=== PATIENT | female | born 1935 ===

== ENCOUNTER 2021-01-11 16:33 | Emergency (ER) | payer MEDICARE, OTHER ==
[~2021-01-11] VITALS: Ht 167.6 cm; Wt 74.8 kg
[~2021-01-11 16:33] MED LIST: BENICAR HCT 401 EAC1 PO; CELECOXIB200 M1 PO; CITALOPRAM20 MG PO; DONEPEZIL HYDROC5 MG PO; LOSARTAN-HCTZ1 EAC1 PO; METOPROLOL SUCC50 M2 PO; SERTRALINE HYDR50 MG PO; THERAGRAN-M PR1 EACH PO; ZOLOFT100 MG PO
[2021-01-11 17:41] LABS: BASO % 0.3 % (0.0-1.0); EOS # 0.9 10*3/uL (0.0-0.4); EOS % 8.6 % (1.0-4.0); HEMATOCRIT 35.8 % (37.0-47.0); LYMPH # 0.7 10*3/uL (1.3-4.4); LYMPH % 7.1 % (27.0-41.0); MEAN CELL VOLUME 90.6 fl (81.0-99.0); MEAN CORPUSCULAR HGB 30.4 pg (27.0-31.0); MEAN CORPUSCULAR HGB CONC 33.5 g/dl (33.0-37.0); MONO # 0.5 10*3/uL (0.1-1.0); MONO % 5.1 % (3.0-9.0); NEUT # 8.2 10*3/uL (2.3-7.9); NEUT % 78.1 % (47.0-73.0); PLATELET COUNT AUTOMATED 313 10*3/uL (130-400); RED BLOOD COUNT 3.95 10*6/uL (4.10-5.10); RED CELL DISTRI WIDTH 13.4 % (0-14.5); WHITE BLOOD COUNT 10.4 10*3/uL (4.8-10.8)
[2021-01-11 17:56] LABS: BILIRUBIN Negative (Negative); BLOOD Negative (Negative); CLARITY Cloudy (Clear); COLOR Yellow (Yellow); GLUCOSE Negative (Negative); KETONE Negative (Negative); LEUKO ESTERASE 2+ (Negative); NITRITE Negative (Negative)
[2021-01-11 17:58] LABS: ALBUMIN 2.5 gm/dl (3.1-4.5); ALKALINE PHOSPHATASE 212 U/L (45-117); BUN 43 mg/dl (7-24); CHLORIDE 101 mmol/L (98-107); CREATININE 1.25 mg/dL (0.55-1.02); SGOT/AST 18 IU/L (3-35); SGPT/ALT 25 U/L (12-78); SODIUM 133 mmol/L (136-145); TOTAL PROTEIN 6.4 gm/dL (6.4-8.2)
[2021-01-11 18:02] LABS: TROPONIN I < 0.015 ng/ml (<0.045)
[2021-01-11 18:11] LABS: BACTERIA 1+; EPITHELIAL CELLS TNTC; WBC 16-20 wbc/hpf (0-5)
[2021-01-11] MEDS ORDERED: CEFUROXIME AXE500 MG PO (20:01)
[2021-01-11] MEDS ORDERED: ZOFRAN4 MG PO (20:01)
== END 2021-01-11 20:05 | disposition home or self-care (01) ==
LOC: ED 16:33
PROVIDERS: Physician Assistant
DX: N39.0 Urinary tract infection, site not specified (principal); Z79.899 Other long term (current) drug therapy; Z98.890 Other specified postprocedural states

== ENCOUNTER 2021-09-07 13:33 | Emergency (ER) | payer OTHER ==
[~2021-09-07] VITALS: Ht 172.7 cm; Wt 68.2 kg
[~2021-09-07 13:33] MED LIST changes: +CEFUROXIME AXE500 MG PO; +ZOFRAN4 MG PO
[2021-09-07] MEDS ORDERED: HYDROXYZINE HCL25 MG PO (13:43)
[2021-09-07] MEDS ORDERED: EXELON1 EACH T (13:44)
[2021-09-07] MEDS ORDERED: CITALOPRAM20 MG PO (13:44)
[2021-09-07 14:13] LABS: HEMATOCRIT 40.6 % (37.0-47.0); MEAN CELL VOLUME 96.4 fl (81.0-99.0); MEAN CORPUSCULAR HGB 31.1 pg (27.0-31.0); MEAN CORPUSCULAR HGB CONC 32.3 g/dl (33.0-37.0); MEAN PLATELET VOLUME 8.9 fl (9.6-12.3); PLATELET COUNT AUTOMATED 287 10*3/uL (130-400); RED BLOOD COUNT 4.21 10*6/uL (4.10-5.10); RED CELL DISTRI WIDTH 13.9 % (0-14.5); WHITE BLOOD COUNT 15.2 10*3/uL (4.8-10.8)
[2021-09-07 14:29] LABS: ALBUMIN 3.2 gm/dl (3.1-4.5); CREATININE 1.66 mg/dL (0.55-1.02); TOTAL PROTEIN 7.2 gm/dL (6.4-8.2)
[2021-09-07 14:33] LABS: PLATELET SUFFICIENCY NORMAL (NORMAL); TOTAL CELLS COUNTED 100 #CELLS; VACUOLATION OF NEUTROPHILS SLIGHT
[2021-09-07 14:35] LABS: BURR CELLS FEW
[2021-09-07 17:02] LABS: BILIRUBIN 2+ (Negative); BLOOD Negative (Negative); CLARITY Clear (Clear); COLOR Orange (Yellow); GLUCOSE Negative (Negative); KETONE Negative (Negative); LEUKO ESTERASE 1+ (Negative); NITRITE Positive (Negative); SPECIFIC GRAVITY 1.025 (1.001-1.030)
[2021-09-07 17:10] LABS: BACTERIA 2+
== END 2021-09-07 18:38 | disposition home or self-care (01) ==
LOC: ED 13:33
PROVIDERS: Emergency Medicine
DX: E86.0 Dehydration (principal); R19.7 Diarrhea, unspecified; D72.829 Elevated white blood cell count, unspecified; R74.02 Elevation of levels of lactic acid dehydrogenase [LDH]; R94.4 Abnormal results of kidney function studies; I12.9 Hypertensive chronic kidney disease with stage 1 through stage 4 chronic kidney disease, or unspecified chronic kidney disease; N18.30 Chronic kidney disease, stage 3 unspecified; Z79.899 Other long term (current) drug therapy; Z98.890 Other specified postprocedural states

== ENCOUNTER 2021-09-09 18:39 | Emergency (ER) | payer OTHER ==
[~2021-09-09] VITALS: Wt 68.0 kg
[~2021-09-09 18:39] MED LIST changes: +EXELON1 EACH T; +HYDROXYZINE HCL25 MG PO
[2021-09-09 20:04] LABS: BASO # 0.1 10*3/uL (0.0-0.1); BASO % 0.4 % (0.0-1.0); EOS # 0.2 10*3/uL (0.0-0.4); EOS % 1.7 % (1.0-4.0); HEMATOCRIT 32.2 % (37.0-47.0); LYMPH # 1.1 10*3/uL (1.3-4.4); LYMPH % 8.6 % (27.0-41.0); MEAN CELL VOLUME 95.5 fl (81.0-99.0); MEAN CORPUSCULAR HGB 31.2 pg (27.0-31.0); MEAN CORPUSCULAR HGB CONC 32.6 g/dl (33.0-37.0); MEAN PLATELET VOLUME 9.2 fl (9.6-12.3); MONO # 1.5 10*3/uL (0.1-1.0); MONO % 12.1 % (3.0-9.0); NEUT # 9.5 10*3/uL (2.3-7.9); NEUT % 76.7 % (47.0-73.0); PLATELET COUNT AUTOMATED 238 10*3/uL (130-400); RED BLOOD COUNT 3.37 10*6/uL (4.10-5.10); RED CELL DISTRI WIDTH 14.2 % (0-14.5); WHITE BLOOD COUNT 12.4 10*3/uL (4.8-10.8)
[2021-09-09 20:22] LABS: ALBUMIN 2.6 gm/dl (3.1-4.5); CREATININE 1.39 mg/dL (0.55-1.02); POTASSIUM 3.8 mmol/L (3.5-5.1); TOTAL PROTEIN 6.5 gm/dL (6.4-8.2)
[2021-09-09 20:28] LABS: BILIRUBIN 2+ (Negative); BLOOD Negative (Negative); CLARITY Clear (Clear); COLOR Dark Yellow (Yellow); GLUCOSE Negative (Negative); KETONE Trace (Negative); LEUKO ESTERASE 1+ (Negative); NITRITE Negative (Negative)
[2021-09-09 20:39] LABS: BACTERIA 1+; EPITHELIAL CELLS 0-2; RBC 0-2 rbc/hpf (0-2); WBC 0-2 wbc/hpf (0-5)
== END 2021-09-09 22:28 | disposition home or self-care (01) ==
LOC: ED 18:39
PROVIDERS: Emergency Medicine
DX: K62.89 Other specified diseases of anus and rectum (principal); I12.9 Hypertensive chronic kidney disease with stage 1 through stage 4 chronic kidney disease, or unspecified chronic kidney disease; N18.30 Chronic kidney disease, stage 3 unspecified; Z79.899 Other long term (current) drug therapy